=== PATIENT | male | born 1995 | race African-American/Black ===

== ENCOUNTER 2019-09-22 23:47 | Emergency (ER) | payer OTHER ==
[~2019-09-22] VITALS: Ht 175.3 cm; Wt 68.0 kg
[2019-09-23 00:27] VITALS: BP 111/89
[2019-09-23] MEDS ORDERED: IBUPROFEN 800 MG TAB PO ONE (01:15)
== END 2019-09-23 02:16 | disposition home or self-care (01) ==
LOC: ER 23:48
DX: M79.18 Myalgia, other site (principal); X50.0XXA Overexertion from strenuous movement or load, initial encounter; Y93.89 Activity, other specified; Y92.89 Other specified places as the place of occurrence of the external cause; Y99.8 Other external cause status
CPT/HCPCS: 72070